=== PATIENT | male | born 1970 | race African-American/Black ===

== ENCOUNTER 2021-08-27 21:30 | Emergency (ER) | payer OTHER ==
[~2021-08-27] VITALS: Ht 180.3 cm; Wt 103.0 kg
[2021-08-27] MEDS ORDERED: SODIUM CHLORIDE 0.9% 1,000 ML IV ONE (22:45)
[2021-08-27] MEDS ORDERED: DIPHENHYDRAMINE 50MG/ML VIAL IV ONE (22:45)
[2021-08-27] MEDS ORDERED: METOCLOPRAMIDE HCL 10MG/2ML VIAL IV ONE (22:45)
[2021-08-27] MEDS ORDERED: ACETAMINOPHEN 325MG TABLET PO ONE (23:00)
[2021-08-28 00:58] VITALS: BP 142/78
== END 2021-08-28 01:00 | disposition home or self-care (01) ==
LOC: ER 21:30
DX: R51.9 Headache, unspecified (principal)
CPT/HCPCS: 96361; 96374; 96375; 99284; J1200; J2765; J7030